=== PATIENT | male | born 1950 | race Caucasian/White ===

== ENCOUNTER 2020-05-30 05:31 | Inpatient (IN) | payer OTHER ==
[~2020-05-30 05:31] MED LIST: ALLOPURINOL100 MG PO; ALTACE2.5 MG PO; ATENOLOL100 MG PO; CRESTOR10 M1 PO; EFFEXOR-XR 75 M75 MG PO; FEOSOL325 MG PO; FLOMAX0.4 MG PO; GABAPENTIN300 MG PO; HYDROCODON-ACE1 EAC6 PO; ISOSORBIDE MONO60 MG PO; LASIX40 MG PO; NORCO 10-325 T1 EACH PO; OMEPRAZOLE40 MG PO; PAXIL40 MG PO; POTASSIUM CHLO10 ME2 PO; POTASSIUM CHLO10 MEQ PO; SYNTHROID100 MCG PO; TOPROL XL100 MG PO; XARELTO10 MG PO; ZANAFLEX4 M1 PO
[2020-05-30] MEDS ORDERED: PERCOCET 7.5/321 TAB PO (07:51)
[2020-05-31 06:51] LABS: BASOPHIL 0.1 % (0-2); EOSINOPHIL 0.1 % (0-7); HCT 33.7 % (42.0-52.0); HGB 10.9 g/dl (13.2-18.0); LYMPHOCYTE 13.4 % (15-48); MCHC 32.3 g/dL (32.0-36.0); MCV 89.6 fL (78.0-100.0); MPV 9.9 fL (6.0-9.5); NEUTROPHIL 75.1 % (41-80); NRBC 0; PLT 202 K/uL (150-400); RBC 3.76 M/uL (4.70-6.00); RDW 14.6 % (11.5-14.0); WBC 12.7 K/uL (4.0-10.5)
[2020-05-31 07:16] LABS: BUN/CREAT RATIO (CALC) 12.3 RATIO; CREATININE 0.81 mg/dL (0.67-1.17); POTASSIUM 4.2 mmol/L (3.5-5.1)
[2020-05-31] MEDS ORDERED: FEOSOL325 MG PO (09:35)
[2020-05-31] MEDS ORDERED: ASPIRIN325 MG PO (09:35)
--- NOTE | 2020-05-31 10:06 | NUR ---
PT. TO D/C HOME WITH SPOUSE. PT. HAS REQUESTED KORT TO HOME. INFORMATION HAS BEEN SENT TO LUZ MARIA AT [facility] TO HOME. PT. WILL NOT REQUIRE ANY DME.
== END 2020-05-31 14:35 | disposition home or self-care (01) | DRG 483 ==
LOC: FSDC 05:31 → FMS 09:31
PROVIDERS: ADMIT Legal Medicine
PROC: 0RRJ00Z Replacement of Right Shoulder Joint with Reverse Ball and Socket Synthetic Substitute, Open Approach (ICD-10-PCS; principal; 2020-05-30 07:00)
DX: M19.09 Primary osteoarthritis, other specified site (principal); M19.012 Primary osteoarthritis, left shoulder; I10 Essential (primary) hypertension; E11.9 Type 2 diabetes mellitus without complications; E03.9 Hypothyroidism, unspecified; F17.210 Nicotine dependence, cigarettes, uncomplicated; Z96.653 Presence of artificial knee joint, bilateral; Z98.890 Other specified postprocedural states; Z85.118 Personal history of other malignant neoplasm of bronchus and lung
CPT/HCPCS: 36415; 73020; 80048; 85025; 86850; 86900; 86901; 94010; 94762; 97162; 97166; 97530-GP; 97535; C1713; C1776; J0171; J0697; J0735; J1100; J1170; J1885; J2250; J2270; J2405; J2704; J2795; J3010; J3475; J7120